=== PATIENT | male | born 1990 | race Caucasian/White ===

== ENCOUNTER 2020-09-02 15:21 | Emergency (ER) | payer MEDICAID ==
[~2020-09-02] VITALS: Ht 177.8 cm; Wt 81.2 kg
[2020-09-02 15:31] VITALS: BP 165/78
[2020-09-02] MEDS ORDERED: KETOROLAC 30 MG/ML VIAL IM ONE (16:00)
[2020-09-02] MEDS ORDERED: HYDROcodone/APAP 5/325 MG 1 TAB TAB PO ONE (16:00)
[2020-09-02] MEDS ORDERED: IBUP-2213 PO (16:50)
[2020-09-02 16:55] VITALS: BP 165/78
== END 2020-09-02 16:55 | disposition home or self-care (01) ==
LOC: MED 15:21
DX: M25.531 Pain in right wrist (principal); F17.210 Nicotine dependence, cigarettes, uncomplicated; V00.131A Fall from skateboard, initial encounter; Y93.89 Activity, other specified; Y92.89 Other specified places as the place of occurrence of the external cause; Y99.8 Other external cause status
CPT/HCPCS: 29125; 73110; 96372; 99283; J1885